=== PATIENT | male | born 1950 | race Caucasian/White ===

== ENCOUNTER 2022-08-01 08:55 | Day surgery (SDC) | payer OTHER, MEDICARE ==
[2022-07-29 11:45] LABS: Potassium 4.1 mEq/L (3.5-5.1)
--- NOTE | 2022-07-29 13:25 | EKG ---
Test Date: 2022-07-29 Test Time: 11:13:33 Digital [employer]ns[employer] Investigator: EUGENIE MEASUREMENT RESULTS: Intervals: Rate: 62 NC: 186 QRSD: 86 QT: 452 QTc: 458 [place]: P: 97 NC: 186 QRS: 42 T: 62 INTERPRETIVE STATEMENTS: Normal sinus rhythm Normal ECG No previous ECG available for comparison Electronically Signed On 07-29-22 13:25:20 CDT by Nithin Randhawa
[2022-08-01] MEDS ORDERED: NA CHLORIDE 0.9% 1,000 ML ONE ×2 (09:27→12:45)
[2022-08-01] MEDS ORDERED: CEFAZOLIN SODIUM 2 GM/VIAL ONE (09:27)
[2022-08-01] MEDS ORDERED: LIDOCAINE 2% MPF 5 ML VIAL ONE (10:35)
[2022-08-01] MEDS ORDERED: propofoL 200 MG/20 ML VIAL IV ONE (10:35)
[2022-08-01] MEDS ORDERED: FENTANYL CITR 100 MCG/2 ML ONE (10:36)
[2022-08-01] MEDS ORDERED: BUPIVACAINE 0.25% PF 10 ML VIAL ONE (10:38)
[2022-08-01] MEDS ORDERED: ONDANSETRON 4 MG/2 ML VIAL ONE ×2 (11:42→13:25)
[2022-08-01] MEDS ORDERED: dexAMETHasone 4 MG/ML VIAL ONE (11:43)
[2022-08-01] MEDS ORDERED: EPHEDRINE SULF 50 MG/ML VIAL ONE (12:05)
--- NOTE | 2022-08-01 12:21 | P.OP ---
Preoperative diagnosis: RIGHT Inguinal Hernia Postoperative diagnosis: RIGHT Inguinal Hernia Primary procedure: Open RIGHT Inguinal Hernia Repair with mesh Anesthesia: GETA + Local Estimated blood loss: <5cc Specimen: cord lipoma Findings: large indirect inguinal hernia, ext oblique thin Complications: None Implants: Bard Perfix Medium plug and patch hernia mesh Transferred to: Recovery Room Condition: Good
[2022-08-01] MEDS: HYDROMORPHONE HCL 1 MG/ML INJ ONE ×4 (12:47→13:20)
--- NOTE | 2022-08-01 12:56 | OP ---
Date of Procedure: 08/01/2022 Surgeon: Ivania Gonzalez MD, Preoperative Diagnosis: Right inguinal hernia. Postoperative Diagnosis: Right inguinal hernia. Procedure Performed: Open right inguinal hernia repair with mesh. Anesthesia: General endotracheal plus local with 0.25% Marcaine. Estimated Blood Loss: Less than 5 cc. Specimen: Cord lipoma. Findings: There was a large indirect inguinal hernia and the external oblique aponeurosis was thin a nd stretched. Complications: None. Implants: Bard PerFix medium plug and patch hernia repair mesh system. Disposition: The patient was transferred to the recovery room in good condition. Procedure In Detail: After informed consent was obtained, the patient was brought to the operating r oom prepped and draped in the usual sterile fashion after adequate anesthesia achieved. I anesthetiz ed the area of the right inguinal skin down through the subcutaneous tissues. I then an incision usi ng a 15 blade down the inguinal region down to the subcutaneous tissues. I then used electrocautery to dissect down through Camper fat and Yariel fascia to expose the external oblique aponeurosis. Thi s was found to be quite thin and alveolar and easily be seen through at this point with the hernia sa c present visibly under the external oblique aponeurosis. This was opened sharply with a 15 blade an d opened in its entirety using Metzenbaum scissors. At this point, I opened this and encircled the s permatic cord and structures in addition to the hernia sac which I closed apposition with a [place] d rain. At this point, I proceeded to dissect free the spermatic cord and structures and reduced the t esticle back to the normal anatomic position and the spermatic cord and structures from the large indirect inguinal hernia, which was larger than 2 fists in size. After I dissected circumfere ntially around the structures and the spermatic cord and structures from the hernia sac, I reduced the contents after placing the patient in steep Trendelenburg position, packing in anatomic p osition using gentle pressure, and reduced quite easily without any need for pressure. I then imbric ated the hernia sac internally and placed the medium Bard PerFix plug and patch system on the field, hydrated appropriately, and placed the Bard medium plug into the preperitoneal space and unfurled it at this point securing it circumferentially around the edge using 2-0 PDS sutures in a circumferentia l fashion with good approximation of tissues. I then irrigated the hernia with sterile saline and duarte ctioned out the area until completely dry. I then brought the hernia patch on the field and secured it to the pubic tubercle and passed on the spermatic cord and structures. The cord lipoma was dissec ivania free at this point and sent off for pathologic examination. At this point, I secured the mesh to the internal oblique aponeurosis and the undersurface of the inguinal ligament circumferentially mary und reconstituting the deep inguinal ring and trimming the mesh appropriately. At this point, the ar ea was copiously irrigated. The external oblique aponeurosis was closed using a 3-0 Vicryl suture in a running fashion and I closed Camper fat and Yariel fascia en bloc using a 3-0 Vicryl suture in an interrupted fashion. The deep dermal plane was closed using 3-0 Vicryl in an interrupted fashion and the skin was closed with a 4-0 Monocryl in a running fashion. Dermabond placed over top. The patie nt tolerated the procedure well without evidence of complication and transferred to PACU in good cond ition. All counts were correct at the end of the case. TK/MODL Voice ID: [id number] Report ID: [id number]
[2022-08-01] MEDS ORDERED: HYDRALAZINE HCL 20 MG/ML VIAL ONE (13:12)
[2022-08-01 15:06] VITALS: TEMP 97.4; O2SAT 100
[2022-08-01] MEDS ORDERED: HYDROCODONE/APAP 5/325 MG TAB ONE (15:43)
[2022-08-01 17:44] VITALS: BP 152/66
== END 2022-08-01 17:32 | disposition home or self-care (01) ==
LOC: OR 08:55
PROVIDERS: ATTEND Surgery
PROC: 0YU50JZ Supplement Right Inguinal Region with Synthetic Substitute, Open Approach (ICD-10-PCS; principal; 2022-08-01 10:30)
DX: K40.90 Unilateral inguinal hernia, without obstruction or gangrene, not specified as recurrent (principal)
CPT/HCPCS: 93005; 80048; 36415; 82947 ×2; 88302; 49505; J0360; J2704; J1100; J2001; J3010; J1170 ×2; J2405 ×2; J7030 ×2

== ENCOUNTER 2024-11-08 08:39 | Day surgery (SDC) | payer OTHER, MEDICARE ==
[2024-11-06 14:18] LABS: Absolute Lymphocytes (CBC) 1.0 K/uL (0.7-4.9); Hematocrit 43.7 % (39.6-49.0); Hemoglobin 14.3 g/dL (13.6-17.9); MCH 29.0 pg (27.0-35.0); MCHC 32.8 g/dL (32.0-36.0); MCV 88.5 fL (80-100); MPV 9.6 fL (7.6-11.3); Nucleated RBC Absolute Count 0.0 (0-0); Nucleated Red Blood Cells % 0.0 % (0-0); RBC Red Blood Cell Count 4.94 M/uL (4.33-5.43); White Blood Count 6.50 thou/uL (4.3-10.9)
[2024-11-06 14:38] LABS: Anion Gap 9.0 mEq/L (5.0-15.0); Glucose Level 137.0 mg/dL (74-106); Potassium 4.0 mEq/L (3.5-5.1)
[2024-11-06 14:39] LABS: BUN Blood Urea Nitrogen 24.0 mg/dL (7-18)
[2024-11-08] MEDS ORDERED: LIDOCAINE 2% MPF 5 ML VIAL ONE (09:10)
[2024-11-08] MEDS ORDERED: ROCURONIUM 50 MG/5 ML VIAL IV ONE (09:10)
[2024-11-08] MEDS ORDERED: FENTANYL CITR 100 MCG/2 ML ONE (09:10)
[2024-11-08] MEDS: Ringers Lactate 1,000 ML IV ONE ×2 (09:28→11:12)
[2024-11-08] MEDS: CEFAZOLIN SODIUM 2 GM/VIAL ONE (09:52)
[2024-11-08] MEDS: LIDOCAINE HCL/EPINEPHRINE 20 ML MDV ONE (10:03)
[2024-11-08] MEDS ORDERED: ONDANSETRON 4 MG/2 ML VIAL ONE (10:07)
[2024-11-08] MEDS ORDERED: GLYCOPYRROLATE 0.2 MG/ML SYR ONE ×2 (10:08→10:31)
[2024-11-08] MEDS ORDERED: NEOSTIGMINE 1 MG/ML -10 ML VIAL ONE (10:08)
[2024-11-08] MEDS ORDERED: EPHEDRINE SULF 50 MG/ML VIAL ONE (10:39)
[2024-11-08] MEDS ORDERED: MORPHINE 10 MG/ML VIAL ONE (11:07)
--- NOTE | 2024-11-08 11:12 | P.OP ---
Preoperative diagnosis: RIGHT Recurrent Inguinal Hernia Postoperative diagnosis: RIGHT Recurrent Inguinal Hernia Primary procedure: Open RIGHT Inguinal Hernia Repair with mesh Anesthesia: GETA + Local Estimated blood loss: <5cc Specimen: Hernia Sack Findings: Recurrent RIGHT inguinal hernia Complications: None Implants: Large Bard Perfix Plug Transferred to: Recovery Room Condition: Good
[2024-11-08] MEDS: HYDRALAZINE HCL 20 MG/ML VIAL ONE (11:34)
[2024-11-08 14:12] VITALS: BP 141/63; TEMP 98; O2SAT 98
--- NOTE | 2024-11-08 21:23 | OP ---
Date of Procedure: 11/08/2024 Surgeon: Jose L Gonzalez MD, Preoperative Diagnosis: Right recurrent inguinal hernia. Postoperative Diagnosis: Right recurrent inguinal hernia. Procedure Performed: An open right inguinal hernia repair with mesh. Anesthesia: General endotracheal plus local with 1% lidocaine with epinephrine. Estimated Blood Loss: Less than 5 cc. Specimen: Hernia sac. Findings: There was a recurrent right inguinal hernia. Tissue planes were distorted from previous s urgical intervention with significant scar to the area. The inguinal hernia had protruded adjacent t o the previous plug which was placed as there was a dehiscence along the medial aspect where the plug was placed. The plug was in normal anatomic position. It was partially occluding the hernia defect which was a small hernia neck allowing for protrusion. Complications: None. Implants: Large Bard PerFix plug. Disposition: The patient transferred to recovery room in good condition. Procedure In Detail: After informed consent was obtained, patient was brought to the operating room, prepped and draped in the usual sterile fashion. After adequate anesthesia was achieved, I anesthet ized an area in the right inguinal region down to subcutaneous tissues. I then made an incision down to subcutaneous tissues down through Camper's fat and Yariel's fascia to expose significant scar tis chiquita in the region of the external oblique aponeurosis which was opened sharply ultimately dissecting around the spermatic cord and structures and it from an obvious hernia sac with the conditi ons as described above. I dissected free the hernia sac and ligated it after opening it, ensuring th ere were no intestinal contents or intraabdominal contents in the defect. At this point, after ligat ing the hernia sac and sending it off for pathologic examination, I closed the hernia sac using runni ng 3-0 Vicryl suture and I then imbricated and returned the hernia sac to the preperitoneal position. I then deployed a large Bard PerFix plug in this position adjacent to previous plug and secured it circumferentially around to the edge in a similar fashion and secured it to the previous plug which h ad a good anchor as well on the medial aspect. I then secured it around circumferentially with a 2-0 PDS suture in an interrupted fashion with good approximation of tissues. I then sat the patient up and performed Valsalva maneuver. The plug was in good position without any movement at all. At this point, I irrigated the area. I returned the spermatic cord and structures. I did it in overall to p position by reducing the testicle. I then irrigated the area once again. No hemostatic maneuvers were required. I then closed the Camper's fat and Yariel's fascia and the external oblique aponeuros is en bloc using an interrupted 3-0 Vicryl suture and I irrigated the area once again. Deep dermal p siria was closed using 3-0 Vicryl suture. The skin was closed with a 4-0 Monocryl in a running fashio n. Dermabond was placed over top. The patient tolerated the procedure without incident or complicat ion and transferred to PACU in good condition. All counts were correct at the end of the case. GODWIN/LINDSEY Voice ID: [id number] Report ID: [id number]
== END 2024-11-08 14:34 | disposition home or self-care (01) ==
LOC: OR 08:39
PROVIDERS: ATTEND Surgery
PROC: 0YU50JZ Supplement Right Inguinal Region with Synthetic Substitute, Open Approach (ICD-10-PCS; principal; 2024-11-08 10:15)
DX: K40.91 Unilateral inguinal hernia, without obstruction or gangrene, recurrent (principal)
CPT/HCPCS: 93005; 85025; 80048; 36415; 88302; 49520; J0360; J2704; J2710; J2003; J3010; J1100; J2405; J7120 ×2